=== PATIENT | female | born 1960 | race Caucasian/White ===

== ENCOUNTER → 2017-10-31 19:47 | Outpatient (CLI) | payer MEDICARE | END | disposition home or self-care (01) | LOC: D.MAMMO 13:30 | DX: Z12.31 Encounter for screening mammogram for malignant neoplasm of breast (principal) ==

== ENCOUNTER 2018-09-17 08:30 | Day surgery (SDC) | payer OTHER ==
[2018-09-14 10:44] LABS: HEMATOCRIT 42.4 % (36.0-48.0); HEMOGLOBIN 14.3 g/dL (12-16); MCHC 33.7 g/dL (31.0-37.0); MEAN PLATELET VOLUME 9.6 fL (7.4-10.4); RBC 4.61 10x6/uL (4.00-5.40); RDW 12.7 % (11.5-14.5)
[2018-09-14 10:52] LABS: ANION GAP 13.9 mmol/L (8-16); CARBON DIOXIDE 27.1 mmol/L (21.0-32.0); CREATININE - SERUM 0.9 mg/dL (0.6-1.3)
[~2018-09-17] VITALS: Ht 172.7 cm; Wt 96.2 kg
--- NOTE | ~2018-09-17 | OP ---
PATIENT NAME: CUCO NOLAN MEDICAL RECORD: [id number] :62 LOCATION:[facility] ADMISSION DATE: SURGEON: NATHANIEL QUINTANA MD DATE OF OPERATION: 09/17/2018 PREOPERATIVE DIAGNOSES: Lumbar spinal stenosis and foraminal stenosis L3-4, left. SURGEON: Nathaniel Quintana MD PROCEDURES: Lumbar laminotomy, medial facetectomy and foraminotomy L3-4 on the left with METRx retractor. PRIMARY CARE DOCTOR: Dr. Malik DESCRIPTION AND TECHNIQUE: After induction of general endotracheal anesthesia, the patient was rolled prone on a Pavan frame. Lumbar spine was prepped and draped in usual sterile fashion. Fluoroscopic x-ray and spinal needle localized the L3-4 interspace on the left side. A series of dilators was used to advance the METRx retractor to the L3-4 interspace on the left side. Level was confirmed with fluoroscopic x-ray. A drill and microscope were used to perform a laminotomy, medial facetectomy and foraminotomy at the L3-4 on the left. Hypertrophied ligamentum flavum was removed with Cloward rongeurs. The L3 and L4 nerve roots were decompressed well. Further foraminotomy was carried out with Cloward rongeurs at L3-4 on the left. Meticulous hemostasis was maintained throughout the wound. The wound was irrigated with copious amounts of Ancef irrigant solution. Fascia was closed with 0 Vicryl suture, the subdermal layer was closed with 3-0 Vicryl suture, skin was closed with isidro. Sterile dressing was applied to the wounds. The patient was awakened in good condition and taken to recovery. All counts were reported as correct. The estimated blood loss was minimal. TRANSINT:[id number] Voice Confirmation ID: [id number] DOCUMENT ID: [id number] NATHANIEL QUINTANA MD CC: [id number] DICTATION DATE: 09/30/18 0725 MANAGER TRADE: 09/30/18 0814 [facility] 09/17/18 [place] [id number]
[~2018-09-17 08:30] MED LIST: ASPIRIN EC81 M1 PO; CITRACAL + D E1 EACH PO; FISH OIL 1,0001 CA1 PO; GEMFIBROZIL600 MG PO; HCTZ25 MG PO; HYDROCODON-ACE1 EA10 PO; LISINOPRIL10 MG PO; PRAVACHOL40 MG PO; PROPRANOLOL HCL20 MG PO; PROZAC40 MG PO; REQUIP1 MG PO; TOPAMAX50 MG PO; XANAX2 MG PO; ZANAFLEX4 MG PO
[2018-09-17 09:03] VITALS: BP 115/76; Ht 172.7 cm; Wt 96.2 kg
--- NOTE | 2018-09-17 13:40 | NUR ---
NO NUMBNESS OR TINGLING REPORTED EQUAL STRENGHT IN SLL 4 EXTREMETIES
--- NOTE | 2018-09-17 13:45 | NUR ---
VANCOMYCIN 1GRAM IN 250CC OF NORMAL SALINE INFUSING ON ADMIT
--- NOTE | 2018-09-17 16:14 | NUR ---
PATIENT AWAITING DISCHARGE BUT THERE ARE NO DISCHARGE ORDERS OR RX FROM DR EATON. CALL TO OR, DR EATON IN PROCEDURE, DR EATON STATES THROUGH CIRCULATING NURSE THAT HE WILL WRITE RX WHEN DONE WITH CURRENT PROCEDURE
[2018-09-17] MEDS ORDERED: PERCOCET 10-321 EAC1 PO (17:39)
--- NOTE | 2018-09-17 17:55 | NUR ---
PIV DC'D WITH TIP INTACT, PATIENT WALKING AROUND ROOM WITHOUT UNSTEADINESS. PATIENT DRESSED IN PERSONAL CLOTHING, DC INSTRUCTIONS REVIEWED WITH PATIENT AND FAMILY. DISCHARGED HOME VIA WHEELCHAIR WITH FAMILY MEMBER
== END 2018-09-17 17:55 | disposition home or self-care (01) ==
LOC: D.OPS 08:30 → D.PAN 10:45 → D.OPS 10:45
PROVIDERS: Anesthesiology; ATTEND Neurological Surgery
DX: M48.061 Spinal stenosis, lumbar region without neurogenic claudication (principal); Z01.812 Encounter for preprocedural laboratory examination

== ENCOUNTER 2020-04-24 13:45 | Outpatient (CLI) | payer BC ==
[2018-09-17 09:03] VITALS: BMI 32.3
[~2020-04-24 13:45] MED LIST changes: +PERCOCET 10-321 EAC1 PO
== END 2020-04-24 16:00 | disposition home or self-care (01) ==
LOC: D.MAMMO 13:45
PROVIDERS: ATTEND General Practice
DX: Z12.31 Encounter for screening mammogram for malignant neoplasm of breast (principal)